=== PATIENT | female | born 1990 | race American Indian/Alaskan Native ===

== ENCOUNTER 2019-03-10 22:33 | Emergency (ER) | payer OTHER ==
--- NOTE | 2019-03-10 22:42 | Event Note ---
ED Screening Note Date of service: 03/10/19 Time: 22:41 ED Screening Note: 28 y o f presents with possible allergic reactiion states feels like throat closing up airway clear and patent This initial assessment/diagnostic orders/clinical plan/treatment(s) is/are subject to change based on patients health status, clinical progression and re- assessment by fellow clinical providers in the ED. Further treatment and workup at subsequent clinical providers discretion. Patient/guardian urged not to elope from the ED as their condition may be serious if not clinically assessed and managed. Initial orders include: iv steroids, pepcid Charge nurse notified
[2019-03-10] MEDS ORDERED: dexAMETHasone 20 MG/5 ML VIAL IV ONE (22:43)
[2019-03-10] MEDS ORDERED: FAMOTIDINE 20 MG/2 ML INJ IV ONE (22:43)
[2019-03-10] MEDS ORDERED: methylPREDNISolone Sod Succinate 125 MG/2 ML INJ IV ONE (23:19)
[2019-03-10] MEDS ORDERED: diphenhydrAMINE 50 MG/ML VIAL IV ONE (23:20)
--- NOTE | 2019-03-10 23:38 | Emergency Department Report ---
HPI - General Chief Complaint: Allergic Reaction Time Seen by Provider: 03/10/19 23:19 - HPI HPI: 28-year-old female presents to the emergency department with what appears to be an allergic reaction. This evening the patient and having s ome hives and itching throughout her body. Just prior to presentation the patient began feeling like her throat was becoming tight and felt like she was short of breath. She took 25 mg of Benadryl. She denies any known allergies other than a childhood allergy of penicillin. She denies any new foods, detergents, clothing, soap or any known allergen. ED Past Medical Hx - Past Medical History Previous Medical History?: No - Social History Smoking Status: Never Smoker Substance Use Type: None - Medications Home Medications: Home Medications Medication Instructions Recorded Confirmed Last Taken Type EPINEPHrine [Epipen 2-Osmar] 0.3 mg IM ONCE PRN #1 applicatio 03/11/19 Unknown Rx Famotidine [Pepcid] 20 mg PO BID #8 tablet 03/11/19 Unknown Rx predniSONE [Deltasone] 20 mg PO BID #8 tab 03/11/19 Unknown Rx ED Review of Systems ROS: Stated complaint: ALLERGIC REACTION Other details as noted in HPI Comment: All other systems reviewed and negative Constitutional: denies: chills, fever Eyes: denies: eye pain, vision change ENT: throat pain. denies: ear pain Respiratory: shortness of breath. denies: cough Cardiovascular: denies: chest pain, palpitations Gastrointestinal: denies: abdominal pain, vomiting Genitourinary: denies: dysuria, discharge Musculoskeletal: denies: back pain, arthralgia Skin: rash, pruritus Neurological: denies: headache, weakness Physical Exam - Physical Exam Vital Signs: Vital Signs 03/10/19 03/10/19 22:39 22:41 Temperature 99.0 F 97.9 F Pulse Rate 106 H 105 H Respiratory 18 20 Rate Blood Pressure 136/98 136/98 O2 Sat by Pulse 98 98 Oximetry Physical Exam: GENERAL: The patient is well-developed well-nourished. HEENT: Normocephalic. Atraumatic. Patient has moist mucous membranes. EYES: Extraocular motions are intact. NECK: Supple. Trachea is midline. CHEST/LUNGS: Clear to auscultation. There is no respiratory distress noted. HEART/CARDIOVASCULAR: Regular. There is no tachycardia. There is no gallop rub or murmur. ABDOMEN: Abdomen is soft, nontender. Patient has normal bowel sounds. Morbidly obese habitus. SKIN: Skin is warm and dry. Patient has diffuse urticaria. There are some excoriations consistent with her pruritus. NEURO: The patient is awake, alert, and oriented. The patient is cooperative. The patient has no focal neurologic deficits. The patient has normal speech. MUSCULOSKELETAL: There is no tenderness or deformity. There is no evidence of acute injury. ED Course Vital Signs 03/10/19 03/10/19 22:39 22:41 Temperature 99.0 F 97.9 F Pulse Rate 106 H 105 H Respiratory 18 20 Rate Blood Pressure 136/98 136/98 O2 Sat by Pulse 98 98 Oximetry ED Medical Decision Making - Medical Decision Making This patient presents with what appears to be an allergic reaction to some unknown allergen. She has diffuse urticaria. She does not have any signs of angioedema or anaphylaxis but she originally came in secondary to the feeling of her throat tightening and shortness of breath. Patient was given steroids, Pepcid and another dose of Benadryl. She was reevaluated multiple times over multiple hours and is feeling greatly improved. The urticaria has decreased. Chest x-ray does not show any acute process. Her vital signs were stable throughout her ED course. She'll be discharged home on steroids, Pepcid and will use [id number] Benadryl. She was also given a prescription for EpiPen, although she does not appear to require this at this time. We discussed signs and symptoms of anaphylaxis for which she would need to use it. - Differential Diagnosis allergic reaction, dermatitis, cellulitis Critical Care Time: No Critical care attestation.: If time is entered above; I have spent that time in minutes in the direct care of this critically ill patient, excluding procedure time. ED Disposition Clinical Impression: Urticaria Allergic reaction Qualifiers: Encounter type: initial encounter Qualified Code(s): T78.40XA - Allergy, unspecified, initial encounter Disposition: DC-01 TO HOME OR SELFCARE Is pt being admited?: No Condition: Stable Instructions: Urticaria (ED) Additional Instructions: Please follow up with a primary care physician in the next few days. Return to the emergency department with any return or worsening of your symptoms, or with any acute distress. I am prescribing you some Pepcid and prednisone to take over the next few days. You can also add [id number] Benadryl at 25 mg every 8 hours as needed for itching or allergic reaction. I am prescribing you an EpiPen. I do not think you need to use this medication now. However it should be used with swelling of the throat or tongue, severe shortness of breath, or any other signs or symptoms of anaphylaxis. If you have to use the EpiPen, then you must call 911 or return to the closest emergency department immediately afterwards. Prescriptions: predniSONE [Deltasone] 20 mg PO BID #8 tab EPINEPHrine [Epipen 2-Osmar] 0.3 mg IM ONCE PRN #1 applicatio PRN Reason: Anaphylaxis Famotidine [Pepcid] 20 mg PO BID #8 tablet Referrals: GEOVANY RYAN [Other] - 2-3 Days Time of Disposition: 01:10
--- NOTE | 2019-03-11 | XRay Report ---
CHEST 1 VIEW INDICATION: SOB. COMPARISON: none FINDINGS: SUPPORT DEVICES: None. HEART / MEDIASTINUM: No significant abnormality. LUNGS / PLEURA: No significant pulmonary or pleural abnormality. No pneumothorax. ADDITIONAL FINDINGS: IMPRESSION: 1. No acute findings. Signer Name: He Duggan MD Signed: 03/10/2019 11:56 PM Workstation Name: [id number]
[2019-03-11 01:35] VITALS: BP 121/84
== END 2019-03-11 01:45 | disposition home or self-care (01) ==
LOC: ED 22:33
DX: T78.40XA Allergy, unspecified, initial encounter (principal); L50.9 Urticaria, unspecified; Z79.899 Other long term (current) drug therapy; X58.XXXA Exposure to other specified factors, initial encounter
CPT/HCPCS: 71045; 96374; 96375; 99283; J1100; J1200; J2930